=== PATIENT | male | born 1975 | race Caucasian/White ===

== ENCOUNTER 2018-05-02 18:01 | Emergency (ER) | payer OTHER ==
[~2018-05-02] VITALS: Ht 182.9 cm; Wt 106.6 kg
[2018-05-02 18:20] VITALS: BP 132/94
== END 2018-05-02 21:44 | disposition left against medical advice (07) ==
LOC: ER 18:01
DX: M25.511 Pain in right shoulder (principal); M54.9 Dorsalgia, unspecified; V43.52XA Car driver injured in collision with other type car in traffic accident, initial encounter; Y93.89 Activity, other specified; Y99.8 Other external cause status; Y92.410 Unspecified street and highway as the place of occurrence of the external cause

== ENCOUNTER 2023-11-09 16:14 | Emergency (ER) | payer OTHER ==
[~2023-11-09] VITALS: Ht 182.9 cm; Wt 105.8 kg
[2023-11-09] MEDS ORDERED: DICL-163 PO (19:32)
[2023-11-09 20:20] VITALS: BP 154/107; TEMP 98.3
[2023-11-09 20:30] VITALS: PULSE 90; RESP 18; O2SAT 94
== END 2023-11-09 20:34 | disposition home or self-care (01) ==
LOC: ER 16:14
DX: K40.20 Bilateral inguinal hernia, without obstruction or gangrene, not specified as recurrent (principal)
CPT/HCPCS: 72192